=== PATIENT | male | born 2005 | race African-American/Black ===

== ENCOUNTER 2025-04-17 01:16 | Emergency (ER) | payer SELFPAY ==
[~2025-04-17] VITALS: Ht 175.3 cm; Wt 82.0 kg
[2025-04-17 01:34] VITALS: TEMP 36.6; O2SAT 99
[2025-04-17] MEDS: SODIUM CHLORIDE 0.9% 2,000 ML IV ONE (01:37)
[2025-04-17] MEDS: ONDANSETRON HCL 4MG/2ML INJ IV ONE (01:37)
[2025-04-17] MEDS: MORPHINE SULFATE 4 MG/ML INJ (FOR IV/IM USE) IV ONE (01:37)
[2025-04-17 01:53] VITALS: BP 151/85; PULSE 64; RESP 12; O2SAT 98
[2025-04-17 01:54] LABS: BASOPHILS % 0.7 % (0.0-2.0); EOSINOPHILS % 9.7 % (0.0-5.0); HEMATOCRIT. 45.9 % (42.0-52.0); HEMOGLOBIN. 15.6 g/dL (14.0-18.0); LYMPHOCYTES % 29.3 % (20.0-50.0); MEAN PLATELET VOLUME 7.4 fl (7.4-10.4); MONOCYTES % 5.4 % (2.0-8.0); NEUTROPHILS % 54.9 % (40.0-76.0); PLATELET 273 x1000/uL (130-400); RED BLOOD CELL COUNT 5.13 mill/uL (4.7-6.1); RED CELL DISTRIBUTION WIDTH 13.8 % (11.6-14.6)
[2025-04-17 02:10] LABS: CREATININE 1.0 mg/dL (0.6-1.3); UREA NITROGEN BLOOD 6 mg/dL (9-23)
== END 2025-04-17 02:20 | disposition short-term general hospital (02) ==
LOC: ER 01:16 → CMPBEDREQ 08:58
DX: S41.001A Unspecified open wound of right shoulder, initial encounter (principal); W34.00XA Accidental discharge from unspecified firearms or gun, initial encounter; Y93.89 Activity, other specified; Y92.89 Other specified places as the place of occurrence of the external cause; Y99.8 Other external cause status
CPT/HCPCS: 80048; 85025; 36415; 71045; 96361; 96374; 96375; 99291; J2405; J2270; J7030; Z7610 ×2